=== PATIENT | female | born 1990 | race Two or more races ===

== ENCOUNTER 2017-08-03 18:17 | Emergency (ER) | payer SELFPAY ==
[~2017-08-03] VITALS: Ht 165.1 cm; Wt 84.4 kg
[2017-08-03 19:08] VITALS: BP 152/99
[2017-08-03] MEDS ORDERED: Norco 5mg/325mg tab ORAL ONE (19:45)
--- NOTE | 2017-08-03 19:59 | Emergency Room Report ---
History of Present Illness General Chief Complaint: Pain Source: Patient Present Illness HPI 27-year-old female presents to the emergency department complaining of 8/10 in severity right ankle pain with mild swelling in addition to left knee pain and bilateral anterior knee abrasions. Status post mechanical trip and fall yesterday. Patient denies previous injury to the extremities. Patient states pain is exacerbated upon weightbearing however she is able to ambulate. Patient denies bleeding at this time denies discharge or erythema. Patient denies fevers or chills. She denies hitting her head or loss of consciousness. Denies numbness tingling or loss of sensation or gross motor movements of the extremities, incontinence of bowel or bladder. Denies CP, Palpitations, LOC, AMS , dizziness, Changes in Vision, Sensation, paresthesias, or a sudden severe headache. pt. reports Tetanus status is unknown Allergies: Coded Allergies: No Known Allergies (Unverified , 08/03/17) Patient History Past Medical History: see triage record Past Surgical History: none Pertinent Family History: none Last Menstrual Period: 07/04/17 Now: No Reviewed Nursing Documentation: PMH: Agreed, PSxH: Agreed Nursing Documentation-PMH Past Medical History: No Stated History Review of Systems All Other Systems: negative except mentioned in HPI Physical Exam Vital Signs Date Time Temp Pulse Resp B/P (MAP) Pulse Ox O2 Delivery O2 Flow Rate FiO2 08/03/17 18:41 98.2 60 18 152/99 100 Room Air Sp02 EP Interpretation: reviewed, normal General Appearance: no apparent distress, alert, GCS 15, non-toxic Head: normocephalic, atraumatic Eyes: bilateral eye normal inspection, bilateral eye PERRL ENT: hearing grossly normal, normal voice Neck: full range of motion Respiratory: lungs clear, normal breath sounds Cardiovascular #1: regular rate, rhythm, normal capillary refill Cardiovascular #2: 2+ dorsalis pedis (R), 2+ dorsalis pedis (L) Musculoskeletal: back normal, gait/station normal, normal range of motion, swelling - lateral right ankle ( mild ) , tender - TTP to the right ankle, swelling noted laterally, NVI, no erythema or increased temperature, TTP to the anterior left knee, no increased laxity, no clicking, FROM with pain. Neurologic: alert, oriented x3, responsive, motor strength/tone normal, sensory intact, speech normal Psychiatric: judgement/insight normal, memory normal, mood/affect normal Skin: normal color, no rash, warm/dry, well hydrated, abrasions - bilateral anterior knee abrasions, superficial, no evidence of infection, not bleeding. Medical Decision Making PA Attestation Dr. Umanzor is my supervising Physician whom patient management has been discussed with. Diagnostic Impression: Primary Impression: Ankle sprain Qualified Codes: S93.401A - Sprain of unspecified ligament of right ankle, initial encounter Additional Impressions: Abrasions of multiple sites Knee contusion Qualified Codes: S80.02XA - Contusion of left knee, initial encounter ER Course 27-year-old female presents to the emergency department complaining of 8/10 in severity right ankle pain with mild swelling in addition to left knee pain and bilateral anterior knee abrasions. Status post mechanical trip and fall yesterday. Patient denies previous injury to the extremities. Patient states pain is exacerbated upon weightbearing however she is able to ambulate. Patient denies bleeding at this time denies discharge or erythema. Patient denies fevers or chills. She denies hitting her head or loss of consciousness. Denies numbness tingling or loss of sensation or gross motor movements of the extremities, incontinence of bowel or bladder. Denies CP, Palpitations, LOC, AMS , dizziness, Changes in Vision, Sensation, paresthesias, or a sudden severe headache. pt. reports Tetanus status is unknown Ddx considered but are not limited to Fracture, dislocation, contusion, Sprain/ Strain/Spasm, abrasions, cellulitis, ligamental injury, septic joint just to name a few. Vital signs: are WNL, pt. is afebrile H&PE are most consistent with musculoskeletal injury will perform imaging to r/ o fractures/dislocations. ORDERS: - X-ray Right ankle 3 views - negative for fx, Dislocation, or significant soft tissue injury, per preliminary read in ED by Dr. Umanzor - interpretation is scribed by PA. - X-ray Left Knee 3 views - negative for fx, Dislocation, or significant soft tissue injury, per preliminary read in ED by Dr. Umanzor - interpretation is scribed by PA. ED INTERVENTIONS: -Tdap is administered. -[place] PO - Bacitracin is applied to anterior knees bilat. -Kishan wrap applied to the right ankle by head of academic technology. Pt. remains neurovascularly intact. DISCHARGE: At this time pt. is stable for d/c to home. Will provide printed patient care instructions, and any necessary prescriptions. Care plan and follow up instructions have been discussed with the patient prior to discharge. Last Vital Signs Date Time Temp Pulse Resp B/P (MAP) Pulse Ox O2 Delivery O2 Flow Rate FiO2 08/03/17 19:08 98.2 78 18 152/99 100 Room Air Disposition: HOME, SELF-CARE Condition: Stable Scripts Ibuprofen* (MOTRIN*) 600 Mg Tablet 600 MG ORAL THREE TIMES A DAY, #30 TAB 0 Refills Prov: Sully He 08/03/17 Bacitracin/Polymyxin B Sulfate (BACITRACIN-POLYMYXIN OINTMENT) 28.35 Gm Oint...g. 1 APPLIC TP BID, #20.3 GM Prov: Sully He 08/03/17 Referrals: NOT CHOSEN IPA/MD,REFERRING (PCP) Departure Forms: Return to Work Return to Work Date: Aug 05, 2017 Work Restrictions: No Heavy Lifting, No Prolonged Standing Other Restrictions: light duty x 1 week. Return to Full Activity: Aug 12, 2017 Patient Instructions: Abrasion, [id number], Ankle Sprain, [id number], Contusion, [id number] Additional Instructions: Take medications as directed. Follow up with a Primary Care Provider in 3-5 days, even if your symptoms have resolved. --Please review list of primary care clinics, if you do not already have a primary care provider Return sooner to ED if new symptoms occur, or current symptoms become worse. - Please note that this Emergency Department Report was dictated using [employer] specialist technology software, occasionally this can lead to erroneous entry secondary to interpretation by the dictation equipment. Sully He Aug 03, 2017 19:59
[2017-08-03] MEDS ORDERED: Tetanus/Diptheria/Pertussis Vaccine 0.5ml Syr IM ONE (20:00)
[2017-08-03] MEDS ORDERED: Bacitracin Oint UD TOPIC ONE ×2 (20:00→20:30)
[2017-08-03] MEDS ORDERED: IBUPROFEN600 MG ORAL (20:13)
[2017-08-03] MEDS ORDERED: BACITRACIN-P28.35 GM TP (20:13)
[2017-08-03 20:41] VITALS: BP 142/85
--- NOTE | 2017-08-04 12:41 | Diagnostic Imaging Report ---
Indication: Pain 3 views of the left knee were obtained. Findings: No acute fracture, malalignment, or joint effusion are identified. Joint space is relatively well-maintained. Impression: Negative for acute injury
--- NOTE | 2017-08-04 12:47 | Diagnostic Imaging Report ---
Indication: Pain right ankle Comparison: None Findings: 3 views of the right ankle obtained. No acute fracture, malalignment, periostitis, or osteochondral defects are identified. Soft tissues are unremarkable. Impression: Negative examination
== END 2017-08-03 20:43 | disposition home or self-care (01) ==
LOC: EMR 19:26
DX: S93.401A Sprain of unspecified ligament of right ankle, initial encounter (principal); S80.02XA Contusion of left knee, initial encounter; S80.212A Abrasion, left knee, initial encounter; S80.211A Abrasion, right knee, initial encounter; W01.0XXA Fall on same level from slipping, tripping and stumbling without subsequent striking against object, initial encounter; Y93.9 Activity, unspecified; Y99.9 Unspecified external cause status; M25.562 Pain in left knee
CPT/HCPCS: 90471; 90715; 99284